=== PATIENT | male | born 1985 | race African-American/Black ===

== ENCOUNTER 2017-12-21 19:55 | Emergency (ER) | payer SELFPAY ==
[2017-12-21 20:34] LABS: Bilirubin Small (Negative); Blood, Urine Negative (Negative); Clarity Clear (Clear); Glucose, Urine (Dipstick) Negative (Negative); Leukocyte Negative (Negative); Nitrite Negative (Negative); Protein, Urine (Dipstick) 30 mg/dL (Neg-Trace); pH, Urine 5.5 (5.0-9.0)
[2017-12-21 20:35] LABS: Specific Gravity, Urine 1.036 (1.002-1.036)
[2017-12-21 20:38] LABS: Squamous Epithelial 0-3 HPF (0-3)
[2017-12-21 20:39] LABS: Bacteria/HPF Rare-Few HPF (None Seen)
[2017-12-21 20:41] LABS: Amphetamine Not Detected (NotDetected); Barbiturates Screen Not Detected (NotDetected); Benzodiazepine Screen Not Detected (NotDetected); Cocaine Metabolite Screen Not Detected (NotDetected); Methadone Not Detected (NotDetected); Methamphetamine Not Detected (NotDetected); Opiate Screen Not Detected (NotDetected); Oxycodone Screen Not Detected (NotDetected); Phencyclidine (PCP) Not Detected (NotDetected); THC/Cannabinoid Screen Detected (NotDetected); Tricyclic Screen Not Detected (NotDetected)
[2017-12-21 20:42] LABS: Medtox Control Line Valid? VALID (VALID)
[2017-12-21 20:50] LABS: #Basophils 0.1 thou/uL (0.0-0.2); #Lymphocytes 1.1 thou/uL (1.20-3.40); #Monocytes 0.5 thou/uL (0.11-0.59); #Neutrophils 3.9 thou/uL (1.40-6.50); %Basophils 1.7 % (0.0-1.0); %Eosinophils 0.8 % (0.0-10.0); %Lymphocytes 19.4 % (21.0-51.0); %Monocytes 8.6 % (0.0-10.0); %Neutrophils 69.5 % (42.0-75.0); Hemoglobin 15.4 g/dL (14.0-18.0); Mean Corpuscular Hemoglobin 26.3 pg (27.0-31.0); Mean Corpuscular Volume 82.4 fL (78.0-98.0); Mean Platelet Volume 7.7 fL (7.4-10.4); Platelet Count 276 thou/uL (130-400); RBC Distribution Width 11.8 % (11.5-14.5); Red Blood Cell (RBC) Count 5.84 mill/uL (4.70-6.10); White Blood Cell (WBC) Count 5.6 thou/uL (4.8-10.8)
[2017-12-21 21:08] LABS: Acetaminophen Less than 6.0 mcg/mL (10.0-30.0); Alcohol Less than 10 mg/dL (Less than 10); Anion Gap 14 mmol/L (10-20); BUN (Urea Nitrogen) 13 mg/dL (8.9-20.6); Calc. Creatinine Clearance 0 mL/min (70-130); Calcium 10.3 mg/dL (7.8-10.44); Carbon Dioxide 26 mmol/L (22-29); Chloride 104 mmol/L (98-107); Estimated GFR-MDRD 78; Glucose 87 mg/dL (70-105); Potassium 3.9 mmol/L (3.5-5.1); Salicylate Less than 8.0 mg/dL (15.0-30.0); Sodium 140 mmol/L (136-145)
== END 2017-12-21 23:45 | disposition home or self-care (01) ==
LOC: MADERS 19:55
DX: F41.9 Anxiety disorder, unspecified (principal); F32.9 Major depressive disorder, single episode, unspecified; F90.9 Attention-deficit hyperactivity disorder, unspecified type; F98.8 Other specified behavioral and emotional disorders with onset usually occurring in childhood and adolescence; F17.200 Nicotine dependence, unspecified, uncomplicated
CPT/HCPCS: 36415; 80048; 80306; 80307; 81003; 81015; 85025; 99284